=== PATIENT | male | born 2000 | race Caucasian/White ===

== ENCOUNTER 2018-03-22 10:50 | Emergency (ER) | payer BC ==
[~2018-03-22] VITALS: Ht 165.1 cm; Wt 81.6 kg
[2018-03-22 11:05] VITALS: Ht 165.1 cm; Wt 81.6 kg
== END 2018-03-22 13:28 | disposition home or self-care (01) ==
LOC: ED 10:50
DX: J18.0 Bronchopneumonia, unspecified organism (principal)
CPT/HCPCS: J7613; Q0092

== ENCOUNTER 2018-08-24 22:41 | Emergency (ER) | payer OTHER ==
[~2018-08-24] VITALS: Ht 167.6 cm; Wt 78.7 kg
[2018-08-24 23:07] VITALS: Ht 167.6 cm; Wt 78.7 kg
[2018-08-25 03:13] LABS: microscopic required? NO
[2018-08-25 03:23] LABS: UA SPECIFIC GRAVITY 1.025 (1.005-1.035); urine erythrocyte NEGATIVE (NEGATIVE)
[2018-08-25 03:35] VITALS: BP 126/81
== END 2018-08-25 03:35 | disposition home or self-care (01) ==
LOC: ED 22:41
PROVIDERS: Emergency Medicine
DX: L73.9 Follicular disorder, unspecified (principal); Q90.9 Down syndrome, unspecified; F79 Unspecified intellectual disabilities
CPT/HCPCS: 87491; 87591